=== PATIENT | male | born 1995 | race American Indian/Alaskan Native ===

== ENCOUNTER 2019-03-09 07:17 | Emergency (ER) | payer SELFPAY ==
[2019-03-09 07:33] VITALS: BP 173/92
[2019-03-09 07:54] LABS: Basophils # (Auto) 0.1 K/mm3 (0.0-0.1); Basophils % (Auto) 0.7 % (0.0-1.8); Eosinophils # (Auto) 0.2 K/mm3 (0.0-0.4); Eosinophils % (Auto) 2.7 % (0.0-4.3); Hematocrit 43.8 % (35.5-45.6); Hemoglobin 14.6 gm/dl (11.8-15.2); Lymphocytes # (Auto) 2.8 K/mm3 (1.2-5.4); Mean Corpuscular HGB Conc 33 % (32-34); Mean Corpuscular Volume 97 fl (84-94); Monocytes # (Auto) 0.7 K/mm3 (0.0-0.8); Platelet Count 297 K/mm3 (140-440); Red Blood Count 4.52 M/mm3 (3.65-5.03)
[2019-03-09 08:08] LABS: Alanine Aminotransferase 25 units/L (7-56); Albumin 4.4 g/dL (3.9-5); BUN/Creatinine Ratio 10; Blood Urea Nitrogen 13 mg/dL (9-20); Calcium 9.6 mg/dL (8.4-10.2); Hemolysis Index 17
[2019-03-09 09:34] LABS: Bilirubin,Urine NEG (Negative); Blood,Urine MOD (Negative); Color,Urine Yellow (Yellow); Mucus,Urine 3+ /HPF
--- NOTE | 2019-03-09 09:43 | Emergency Department Report ---
ED Abdominal Pain HPI - General Chief Complaint: Abdominal Pain Stated Complaint: STOMACH PAIN Time Seen by Provider: 03/09/19 09:17 Source: patient Mode of arrival: Ambulatory Limitations: No Limitations - History of Present Illness Initial Comments: This is a 23-year-old male with no prior medical history presenting with left- sided abdominal pain that started 3 AM today. Patient admitted some nausea but no diarrhea. Patient also notes having some left-sided flank pain about a week ago. Otherwise he denies fevers/chills/headache/chest pain/shortness of breath or any other problems. MD Complaint: abdominal pain Location: LLQ, L flank Radiation: none Migration to: no migration Severity: mild - Related Data Previous Rx's Medication Instructions Recorded Last Taken Type Famotidine [Pepcid] 20 mg PO BID #20 tablet 03/09/19 Unknown Rx Ondansetron (Nf) [Zofran TAB] 8 mg PO Q8HR PRN #20 tablet 03/09/19 Unknown Rx Allergies Allergy/AdvReac Type Severity Reaction Status Date / Time No Known Allergies Allergy Unverified 03/09/19 07:24 ED Review of Systems ROS: Stated complaint: STOMACH PAIN Other details as noted in HPI Comment: All other systems reviewed and negative ED Past Medical Hx - Past Medical History Previous Medical History?: No - Surgical History Past Surgical History?: No - Social History Smoking Status: Current Every Day Smoker Substance Use Type: None - Medications Home Medications: Home Medications Medication Instructions Recorded Confirmed Last Taken Type Famotidine [Pepcid] 20 mg PO BID #20 tablet 03/09/19 Unknown Rx Ondansetron (Nf) [Zofran TAB] 8 mg PO Q8HR PRN #20 tablet 03/09/19 Unknown Rx ED Physical Exam - General Limitations: No Limitations General appearance: alert, in no apparent distress - Head Head exam: Present: atraumatic, normocephalic - Eye Eye exam: Present: normal appearance - ENT ENT exam: Present: mucous membranes moist - Neck Neck exam: Present: normal inspection - Respiratory Respiratory exam: Present: normal lung sounds bilaterally. Absent: respiratory distress - Cardiovascular Cardiovascular Exam: Present: regular rate, normal rhythm. Absent: systolic murmur, diastolic murmur, rubs, gallop - GI/Abdominal GI/Abdominal exam: Present: soft, normal bowel sounds. Absent: distended, tenderness, rebound, rigid, mass - Rectal Rectal exam: Present: deferred - Extremities Exam Extremities exam: Present: normal inspection - Back Exam Back exam: Present: normal inspection - Neurological Exam Neurological exam: Present: alert, oriented X3 - Psychiatric Psychiatric exam: Present: normal affect, normal mood - Skin Skin exam: Present: warm, dry, intact, normal color. Absent: rash ED Course Vital Signs 03/09/19 07:30 Temperature 98.5 F Pulse Rate 63 Respiratory 20 Rate Blood Pressure 173/92 O2 Sat by Pulse 100 Oximetry ED Medical Decision Making - Lab Data Result diagrams: 03/09/19 07:43 03/09/19 07:43 Laboratory Last Values WBC 8.4 K/mm3 (4.5-11.0) 03/09/19 07:43 RBC 4.52 M/mm3 (3.65-5.03) 03/09/19 07:43 Hgb 14.6 gm/dl (11.8-15.2) 03/09/19 07:43 Hct 43.8 % (35.5-45.6) 03/09/19 07:43 MCV 97 fl (84-94) H 03/09/19 07:43 MCH 32 pg (28-32) 03/09/19 07:43 MCHC 33 % (32-34) 03/09/19 07:43 RDW 12.0 % (13.2-15.2) L 03/09/19 07:43 Plt Count 297 K/mm3 (140-440) 03/09/19 07:43 Lymph % (Auto) 33.0 % (13.4-35.0) 03/09/19 07:43 [place] % (Auto) 8.0 % (0.0-7.3) H 03/09/19 07:43 Eos % (Auto) 2.7 % (0.0-4.3) 03/09/19 07:43 Baso % (Auto) 0.7 % (0.0-1.8) 03/09/19 07:43 Lymph # 2.8 K/mm3 (1.2-5.4) 03/09/19 07:43 [place] # 0.7 K/mm3 (0.0-0.8) 03/09/19 07:43 Eos # 0.2 K/mm3 (0.0-0.4) 03/09/19 07:43 Baso # 0.1 K/mm3 (0.0-0.1) 03/09/19 07:43 Seg Neutrophils % 55.6 % (40.0-70.0) 03/09/19 07:43 Seg Neutrophils # 4.7 K/mm3 (1.8-7.7) 03/09/19 07:43 Sodium 141 mmol/L (137-145) 03/09/19 07:43 Potassium 3.8 mmol/L (3.6-5.0) 03/09/19 07:43 Chloride 103.3 mmol/L (98-107) 03/09/19 07:43 Carbon Dioxide 26 mmol/L (22-30) 03/09/19 07:43 16 mmol/L 03/09/19 07:43 BUN 13 mg/dL (9-20) 03/09/19 07:43 1.3 mg/dL (0.8-1.5) 03/09/19 07:43 Estimated GFR > 60 ml/min 03/09/19 07:43 10 % 03/09/19 07:43 Glucose 125 mg/dL (75-100) H 03/09/19 07:43 Calcium 9.6 mg/dL (8.4-10.2) 03/09/19 07:43 0.70 mg/dL (0.1-1.2) 03/09/19 07:43 AST 33 units/L (5-40) 03/09/19 07:43 ALT 25 units/L (7-56) 03/09/19 07:43 72 units/L (35-129) 03/09/19 07:43 7.7 g/dL (6.3-8.2) 03/09/19 07:43 4.4 g/dL (3.9-5) 03/09/19 07:43 1.3 % 03/09/19 07:43 22 units/L (13-60) 03/09/19 07:43 Yellow (Yellow) 03/09/19 09:01 Clear (Clear) 03/09/19 09:01 6.0 (5.0-7.0) 03/09/19 09:01 Ur Specific [place] 1.029 (1.003-1.030) 03/09/19 09:01 30 mg/dl mg/dL (Negative) 03/09/19 09:01 Neg mg/dL (Negative) 03/09/19 09:01 20 mg/dL (Negative) 03/09/19 09:01 Mod (Negative) 03/09/19 09:01 Neg (Negative) 03/09/19 09:01 Neg (Negative) 03/09/19 09:01 4.0 mg/dL (<2.0) 03/09/19 09:01 Ur Leukocyte Esterase Neg (Negative) 03/09/19 09:01 1.0 /HPF (0.0-6.0) 03/09/19 09:01 88.0 /HPF (0.0-6.0) 03/09/19 09:01 U Epithel Cells (Auto) < 1.0 /HPF (0-13.0) 03/09/19 09:01 3+ /HPF 03/09/19 09:01 - Medical Decision Making 23-year-old male presents to gastroenteritis. Labs are within normal limits no signs of leukocytosis or that she'll balance urinalysis is normal Discussed is with the patient. Discussed with patient to follow up with primary care physician Patient had a non-tender abdomen so radiology not needed. Discussed with patient to avoid certain foods for a while. Vital signs are normal patient is in no acute distress. Critical care attestation.: If time is entered above; I have spent that time in minutes in the direct care of this critically ill patient, excluding procedure time. ED Disposition Clinical Impression: Gastroenteritis Disposition: DC-01 TO HOME OR SELFCARE Is pt being admited?: No Does the pt Need Aspirin: No Condition: Stable Instructions: Gastroenteritis (ED), Acute Nausea and Vomiting (ED), Food Poisoning (ED) Additional Instructions: Make sure to follow up with the primary care physician as discussed. Take all your medications as you've been prescribed. If you have any worsening symptoms or develop new symptoms please return to ED immediately. Prescriptions: Famotidine [Pepcid] 20 mg PO BID #20 tablet Ondansetron (Nf) [Zofran TAB] 8 mg PO Q8HR PRN #20 tablet PRN Reason: Nausea Referrals: PRIMARY CARE,MD [Primary Care Provider] - 3-5 Days [facility] [Outside] - 3-5 Days [facility] [Outside] - 3-5 Days Forms: Work/School Release Form(ED) Time of Disposition: 10:26
[2019-03-09] MEDS ORDERED: ZOFRAN ORAL LIQ PO ONE (10:19)
[2019-03-09] MEDS ORDERED: BENTYL PO ONE (10:19)
== END 2019-03-09 10:35 | disposition home or self-care (01) ==
LOC: ED 07:17
DX: K52.9 Noninfective gastroenteritis and colitis, unspecified (principal); F17.200 Nicotine dependence, unspecified, uncomplicated
CPT/HCPCS: 36415; 80053; 81001; 83690; 85025; 99283; Q0162